=== PATIENT | female | born 1955 | race Caucasian/White ===

== ENCOUNTER 2023-11-04 20:31 | Emergency (ER) | payer OTHER ==
[~2023-11-04] VITALS: Ht 152.4 cm; Wt 87.5 kg
[~2023-11-04 20:31] MED LIST: ASPI-1856 PO; ASPIRIN; IRBE300T47 PO; [UNRECOGNIZED DRUG - OTHER]
[2023-11-04 20:50] VITALS: BP 168/75; PULSE 60; RESP 20; TEMP 98; O2SAT 96
[2023-11-04] MEDS: ACETAMINOPHEN EXTRA STRENGTH 500 MG TAB PO ONE (21:53)
[2023-11-04 21:55] LABS: BASOPHILS % (AUTO) 0.3 % (0.0-2.0); EOSINOPHILS # (AUTO) 0.1 K/uL (0-0.4); EOSINOPHILS % (AUTO) 1.8 % (0.0-4.0); HEMATOCRIT 41.1 % (36-48); HEMOGLOBIN 13.7 g/dL (12.0-16.0); LYMPHOCYTES # (AUTO) 2.6 K/uL (2.5-16.5); LYMPHOCYTES % (AUTO) 39.7 % (20.5-51.1); MEAN CORPUSCULAR HEMOGLOBIN 32 pg (27-31); MEAN CORPUSCULAR HGB CONC 33 g/dL (33-37); MEAN CORPUSCULAR VOLUME 95.1 fL (80-94); MONOCYTES # (AUTO) 0.6 K/uL (0.8-1.0); MONOCYTES % (AUTO) 9.2 % (1.7-9.3); NEUTROPHILS # (AUTO) 3.2 K/uL (1.8-7.7); PLATELET COUNT (AUTO) 166 K/uL (140-450); RED BLOOD CELL COUNT(AUTO) 4.32 MIL/uL (4.20-5.40); RED CELL DISTRIBUTION WIDTH 13.2 % (11.6-13.7); WHITE BLOOD COUNT (AUTO) 6.6 K/uL (4.8-10.8)
[2023-11-04] MEDS: KETOROLAC 30 MG/ML VIAL IVP ONE (22:00)
[2023-11-04 22:09] LABS: ANION GAP 12.4 (8-16); CARBON DIOXIDE 28.2 mmol/L (21-32); CREATININE 0.9 mg/dL (0.6-1.3); POTASSIUM 3.6 mmol/L (3.5-5.1)
[2023-11-04 22:13] LABS: INR 0.99 (0.8-1.2); PARTIAL THROMBOPLASTIN TIME 24.1 secs (22-35.6); PROTHROMBIN TIME 10.4 secs (10.8-13.4)
[2023-11-04] MEDS: MORPHINE SULFATE 4 MG/ML SYR IVP ONE (23:56)
[2023-11-05] MEDS ORDERED: ACET-10509 PO (00:16)
[2023-11-05 00:31] VITALS: BP 158/69; PULSE 56; RESP 16; TEMP 98.3; O2SAT 96
== END 2023-11-05 00:31 | disposition home or self-care (01) ==
LOC: MED 20:31
DX: R07.9 Chest pain, unspecified (principal); I11.0 Hypertensive heart disease with heart failure; I50.9 Heart failure, unspecified; Z79.899 Other long term (current) drug therapy; Z79.82 Long term (current) use of aspirin; Z91.011 Allergy to milk products; Z91.018 Allergy to other foods
CPT/HCPCS: 36415; 71045; 80048; 83880; 84484; 85025; 85610; 85730; 96374; 99285; J1885; Q0092; J2270